=== PATIENT | male | born 1960 | race Caucasian/White ===

== ENCOUNTER 2020-12-01 14:54 | Inpatient (IN) ==
[2020-12-01] MEDS ORDERED: Acetaminophen/Butalbital/CaffeineTABLET PO PRN (16:51)
[2020-12-01] MEDS ORDERED: *HR* OxyCODONE Immed Rel 5 MG TABLET PO PRN (17:11)
[2020-12-01] MEDS ORDERED: Acetaminophen 325 MG TABLET PO PRN (17:11)
[2020-12-01] MEDS ORDERED: Naloxone 0.4 MG/ML INJ IVP PRN (17:11)
[2020-12-01] MEDS ORDERED: Ondansetron 4 MG/2 ML VIAL IVP PRN (17:11)
[2020-12-01] MEDS ORDERED: Chloraseptic Spray 177 ML BOTTLE MM PRN (17:21)
[2020-12-01] MEDS ORDERED: Dexamethasone Sodium Phos/PF 10 MG/ML VIAL IVP ONE (17:23)
[2020-12-01] MEDS: Furosemide 40 MG/4 ML VIAL IVP SCH (17:47)
[2020-12-01] MEDS: cefTRIAXone 1,000 MG in Water for inj. (sterile) 10 ML IVP SCH (17:47)
[2020-12-01 17:50] LABS: ABG Base Excess -2 mEq/L (-2 to 3); ABG HCO3 21 mEq/L (21-27); ABG Oxygen Saturation 97 % (95-98); ABG PCO2 32 mmHg (35-45); ABG PH 7.43 pH Units (7.32-7.45); ABG PO2 89 mmHg (85-104); ABG TCO2 22 mEq/L (20-26)
[2020-12-01] MEDS: Azithromycin 250 MG TABLET PO SCH (17:55)
[2020-12-01] MEDS: Ipratropium 1 PUFF INHALER IH SCH ×3 (17:57→23:27)
[2020-12-01] MEDS ORDERED: Remdesivir 200 MG in 0.9 % Sodium Chloride 100 ML IVPB ONE (18:00)
[2020-12-01] MEDS: Saline Nasal Spray 44 ML BOTTLE NS SCH ×2 (18:09→19:30)
[2020-12-01 18:49] LABS: C-Reactive Protein > 300 mg/L (Less than 10); Ferritin 1050 ng/mL (20-250); Lactate Dehydrogenase 520 Units/L (140-271)
[2020-12-01] MEDS: Lactobacillus 1 EACH CAP.SPRINK PO SCH (19:30)
[2020-12-01] MEDS: Chlorhexidine Rinse 15 ML MOUTHWASH MM SCH (19:30)
[2020-12-01] MEDS: Artificial Tears SOLN 15 ML BOTTLE BOTH EYES SCH (19:30)
[2020-12-01] MEDS: traZODone 50 MG TABLET PO PRN (23:00)
[2020-12-02 00:56] LABS: Basophils % 0.1 %; Hematocrit 41.2 % (37.5-50.1); Hemoglobin 14.7 g/dL (12.9-16.9); Immature Granulocytes % 0.6 % (0-4); Lymphocytes # 0.5 K/mcL (0.6-4.6); Lymphocytes % 3.8 %; Mean Corpuscular HGB Conc 35.7 g/dL (31.6-35.5); Mean Corpuscular Hemoglobin 28.5 pg (28.0-33.3); Mean Platelet Volume 9.2 fL (9.4-12.4); Monocytes # 0.1 K/mcL (0.0-1.3); Neutrophils # 13.2 K/mcL (1.6-8.9); Platelet Count 259 K/mcL (140-400); Red Blood Count 5.15 M/mcL (4.19-5.50); Red Cell Distribution Width 12.4 % (11.5-14.5); Segmented Neutrophils % 94.5 %; White Blood Count 13.9 K/mcL (4.3-11.1)
[2020-12-02 00:59] LABS: INR 1.4
[2020-12-02 01:10] LABS: Alanine Aminotransferase 129 Units/L (7-52); Albumin/Globulin Ratio 1.1 (1.1-2.2); Alkaline Phosphatase 97 Units/L (34-104); Aspartate Amino Transferase 113 Units/L (13-39); BUN/Creatinine Ratio 15 (6-26); Bilirubin,Total 0.7 mg/dL (0.3-1.0); Blood Urea Nitrogen 17 mg/dL (6-20); Carbon Dioxide 25 mEq/L (23-29); Chloride 91 mEq/L (98-107); Globulin 3.8 g/dL (2.4-3.5); Glucose 183 mg/dL (70-105); Magnesium 2.1 mg/dL (1.6-2.6); Osmolality,Calculated 272 (280-300); Phosphorous 3.3 mg/dL (2.7-4.5); Potassium 3.4 mEq/L (3.5-5.1); Sodium 128 mEq/L (136-145); Total Protein 7.8 g/dL (6.4-8.9); eGFR For African Americans > 60 (> 60); eGFR For Non-African Americans > 60 (> 60)
[2020-12-02 01:30] LABS: C-Reactive Protein > 300 mg/L (Less than 10); Ferritin 1361 ng/mL (20-250); Lactate Dehydrogenase 556 Units/L (140-271)
[2020-12-02] MEDS: Saline Nasal Spray 44 ML BOTTLE NS SCH ×8 (02:18→23:39)
[2020-12-02] MEDS: Ipratropium 1 PUFF INHALER IH SCH ×6 (03:46→23:32)
[2020-12-02] MEDS: *HR* Enoxaparin 40 MG/0.4 ML SYRINGE SQ SCH (05:11)
[2020-12-02] MEDS: Azithromycin 250 MG TABLET PO SCH (08:49)
[2020-12-02] MEDS: Lactobacillus 1 EACH CAP.SPRINK PO SCH ×2 (08:49→19:53)
[2020-12-02] MEDS: Multivit/Ca/Min/Fe/FA 1 TAB TABLET PO SCH (08:49)
[2020-12-02] MEDS: Chlorhexidine Rinse 15 ML MOUTHWASH MM SCH ×2 (08:50→19:53)
[2020-12-02] MEDS: Furosemide 40 MG/4 ML VIAL IVP SCH (08:50)
[2020-12-02] MEDS: Dexamethasone Sodium Phos/PF 10 MG/ML VIAL IVP SCH (08:50)
[2020-12-02] MEDS: Artificial Tears SOLN 15 ML BOTTLE BOTH EYES SCH ×2 (08:51→20:24)
[2020-12-02 09:03] LABS: ABG Base Excess 0 mEq/L (-2 to 3); ABG HCO3 23 mEq/L (21-27); ABG Oxygen Saturation 99 % (95-98); ABG PCO2 33 mmHg (35-45); ABG PH 7.46 pH Units (7.32-7.45); ABG PO2 115 mmHg (85-104); ABG TCO2 24 mEq/L (20-26)
[2020-12-02] MEDS ORDERED: Remdesivir 100 MG in 0.9 % Sodium Chloride 100 ML IVPB SCH (17:00)
[2020-12-02] MEDS: cefTRIAXone 1,000 MG in Water for inj. (sterile) 10 ML IVP SCH (18:35)
[2020-12-02] MEDS: traZODone 50 MG TABLET PO PRN (23:40)
[2020-12-03 00:20] LABS: Bilirubin,Urine Negative (Negative); Blood,Urine Trace (Negative); Clarity,Urine Clear (Clear); Color,Urine Colorless (Yellow); Glucose,Urine (UA) Normal (Normal); Ketones,Urine Negative (Negative); Leukocyte Esterase,Urine Negative (Negative); Nitrite,Urine Negative (Negative); Protein,Urine Negative (Neg-Trace); RBC,Urine 0-3 per hpf (0-3); Urobilinogen,Urine Normal (Normal); WBC,Urine 0-3 per hpf (0-3)
[2020-12-03] MEDS: Ipratropium 1 PUFF INHALER IH SCH ×6 (03:22→23:19)
[2020-12-03] MEDS: Saline Nasal Spray 44 ML BOTTLE NS SCH ×3 (05:09→16:35)
[2020-12-03] MEDS: *HR* Enoxaparin 40 MG/0.4 ML SYRINGE SQ SCH (05:11)
[2020-12-03 06:21] LABS: Basophils # 0.1 K/mcL (0.0-0.2); Basophils % 0.4 %; Hematocrit 41.8 % (37.5-50.1); Hemoglobin 14.2 g/dL (12.9-16.9); Immature Granulocytes % 1.9 % (0-4); Lymphocytes % 5.3 %; Mean Corpuscular Hemoglobin 28.3 pg (28.0-33.3); Mean Corpuscular Volume 83.3 fL (83.0-100.0); Mean Platelet Volume 9.5 fL (9.4-12.4); Monocytes # 0.8 K/mcL (0.0-1.3); Monocytes % 4.3 %; Neutrophils # 16.9 K/mcL (1.6-8.9); Platelet Count 352 K/mcL (140-400); Red Blood Count 5.02 M/mcL (4.19-5.50); Red Cell Distribution Width 13.1 % (11.5-14.5); Segmented Neutrophils % 88.1 %; White Blood Count 19.2 K/mcL (4.3-11.1)
[2020-12-03 06:46] LABS: Lactate Dehydrogenase 766 Units/L (140-271)
[2020-12-03 07:02] LABS: Alanine Aminotransferase 890 Units/L (7-52); Albumin 3.7 g/dL (3.5-5.7); Alkaline Phosphatase 112 Units/L (34-104); Aspartate Amino Transferase 586 Units/L (13-39); BUN/Creatinine Ratio 28 (6-26); Bilirubin,Total 0.6 mg/dL (0.3-1.0); Blood Urea Nitrogen 33 mg/dL (6-20); Calcium 8.9 mg/dL (8.6-10.3); Carbon Dioxide 24 mEq/L (23-29); Chloride 97 mEq/L (98-107); Globulin 3.6 g/dL (2.4-3.5); Glucose 175 mg/dL (70-105); Magnesium 2.6 mg/dL (1.6-2.6); Osmolality,Calculated 286 (280-300); Phosphorous 3.7 mg/dL (2.7-4.5); Potassium 4.1 mEq/L (3.5-5.1); Sodium 132 mEq/L (136-145); Total Protein 7.3 g/dL (6.4-8.9); eGFR For African Americans > 60 (> 60); eGFR For Non-African Americans > 60 (> 60)
[2020-12-03 07:25] LABS: INR 1.2; Prothrombin Time 14.2 Seconds (9.4-12.1)
[2020-12-03] MEDS: Chlorhexidine Rinse 15 ML MOUTHWASH MM SCH ×2 (07:57→19:50)
[2020-12-03] MEDS: Dexamethasone Sodium Phos/PF 10 MG/ML VIAL IVP SCH (07:57)
[2020-12-03] MEDS: Lactobacillus 1 EACH CAP.SPRINK PO SCH ×2 (07:57→19:51)
[2020-12-03] MEDS: Cholecalciferol (D-3) 1,000 UNIT (25MCG) TABLET PO SCH (07:58)
[2020-12-03] MEDS: Azithromycin 250 MG TABLET PO SCH (07:58)
[2020-12-03] MEDS: Furosemide 40 MG/4 ML VIAL IVP SCH (07:58)
[2020-12-03] MEDS: Multivit/Ca/Min/Fe/FA 1 TAB TABLET PO SCH (07:58)
[2020-12-03 07:59] LABS: C-Reactive Protein 162 mg/L (Less than 10); Ferritin > 1500 ng/mL (20-250)
[2020-12-03] MEDS: Artificial Tears SOLN 15 ML BOTTLE BOTH EYES SCH ×2 (08:29→23:50)
[2020-12-03] MEDS ORDERED: Saline Nasal Spray 44 ML BOTTLE NS PRN (17:11)
[2020-12-03] MEDS: cefTRIAXone 1,000 MG in Water for inj. (sterile) 10 ML IVP SCH (17:42)
[2020-12-03] MEDS: Doxycycline 100 MG CAPSULE PO SCH (19:51)
[2020-12-03] MEDS: traZODone 50 MG TABLET PO PRN (23:41)
[2020-12-03] MEDS: Benzonatate 100 MG CAPSULE PO PRN (23:41)
[2020-12-04] MEDS: Ipratropium 1 PUFF INHALER IH SCH ×6 (03:29→23:37)
[2020-12-04] MEDS: *HR* Enoxaparin 40 MG/0.4 ML SYRINGE SQ SCH (06:07)
[2020-12-04 06:37] LABS: Basophils # 0.1 K/mcL (0.0-0.2); Basophils % 0.7 %; Hematocrit 40.5 % (37.5-50.1); Hemoglobin 13.5 g/dL (12.9-16.9); Immature Granulocytes % 3.9 % (0-4); Lymphocytes # 1.5 K/mcL (0.6-4.6); Lymphocytes % 8.4 %; Mean Corpuscular HGB Conc 33.3 g/dL (31.6-35.5); Mean Corpuscular Hemoglobin 27.5 pg (28.0-33.3); Mean Corpuscular Volume 82.5 fL (83.0-100.0); Mean Platelet Volume 9.3 fL (9.4-12.4); Monocytes # 1.1 K/mcL (0.0-1.3); Monocytes % 6.4 %; Neutrophils # 14.2 K/mcL (1.6-8.9); Platelet Count 384 K/mcL (140-400); Red Blood Count 4.91 M/mcL (4.19-5.50); Red Cell Distribution Width 13.2 % (11.5-14.5); Segmented Neutrophils % 80.6 %; White Blood Count 17.6 K/mcL (4.3-11.1)
[2020-12-04 06:43] LABS: INR 1.2; Prothrombin Time 13.5 Seconds (9.4-12.1)
[2020-12-04 07:00] LABS: Lactate Dehydrogenase 508 Units/L (140-271)
[2020-12-04 07:12] LABS: Alanine Aminotransferase 788 Units/L (7-52); Albumin 3.5 g/dL (3.5-5.7); Albumin/Globulin Ratio 1.1 (1.1-2.2); Alkaline Phosphatase 101 Units/L (34-104); Aspartate Amino Transferase 268 Units/L (13-39); BUN/Creatinine Ratio 32 (6-26); Bilirubin,Total 0.5 mg/dL (0.3-1.0); Blood Urea Nitrogen 36 mg/dL (6-20); Calcium 8.6 mg/dL (8.6-10.3); Carbon Dioxide 26 mEq/L (23-29); Chloride 99 mEq/L (98-107); Globulin 3.2 g/dL (2.4-3.5); Glucose 120 mg/dL (70-105); Magnesium 2.8 mg/dL (1.6-2.6); Osmolality,Calculated 290 (280-300); Potassium 4.2 mEq/L (3.5-5.1); Sodium 135 mEq/L (136-145); Total Protein 6.7 g/dL (6.4-8.9); eGFR For African Americans > 60 (> 60); eGFR For Non-African Americans > 60 (> 60)
[2020-12-04 09:07] LABS: Ferritin > 1500 ng/mL (20-250)
[2020-12-04] MEDS: Cholecalciferol (D-3) 1,000 UNIT (25MCG) TABLET PO SCH (09:11)
[2020-12-04] MEDS: Multivit/Ca/Min/Fe/FA 1 TAB TABLET PO SCH (09:11)
[2020-12-04] MEDS: Doxycycline 100 MG CAPSULE PO SCH ×2 (09:11→21:10)
[2020-12-04] MEDS: Dexamethasone Sodium Phos/PF 10 MG/ML VIAL IVP SCH (09:12)
[2020-12-04] MEDS: Lactobacillus 1 EACH CAP.SPRINK PO SCH ×2 (09:12→21:10)
[2020-12-04] MEDS: Chlorhexidine Rinse 15 ML MOUTHWASH MM SCH ×2 (09:12→21:10)
[2020-12-04] MEDS: Artificial Tears SOLN 15 ML BOTTLE BOTH EYES SCH ×2 (09:13→21:25)
[2020-12-04] MEDS: Furosemide 40 MG/4 ML VIAL IVP SCH (09:13)
[2020-12-04 13:55] LABS: C-Reactive Protein 73 mg/L (Less than 10)
[2020-12-04] MEDS: cefTRIAXone 1,000 MG in Water for inj. (sterile) 10 ML IVP SCH (18:12)
[2020-12-05] MEDS: Ipratropium 1 PUFF INHALER IH SCH ×6 (03:50→23:44)
[2020-12-05] MEDS: *HR* Enoxaparin 40 MG/0.4 ML SYRINGE SQ SCH (05:32)
[2020-12-05 08:04] LABS: Hematocrit 42.7 % (37.5-50.1); Hemoglobin 14.4 g/dL (12.9-16.9); Mean Corpuscular HGB Conc 33.7 g/dL (31.6-35.5); Mean Corpuscular Hemoglobin 27.6 pg (28.0-33.3); Mean Platelet Volume 9.1 fL (9.4-12.4); Platelet Count 427 K/mcL (140-400); Red Blood Count 5.21 M/mcL (4.19-5.50); Red Cell Distribution Width 13.1 % (11.5-14.5); White Blood Count 15.3 K/mcL (4.3-11.1)
[2020-12-05] MEDS: Dexamethasone Sodium Phos/PF 10 MG/ML VIAL IVP SCH (08:04)
[2020-12-05] MEDS: Multivit/Ca/Min/Fe/FA 1 TAB TABLET PO SCH (08:04)
[2020-12-05] MEDS: Chlorhexidine Rinse 15 ML MOUTHWASH MM SCH ×2 (08:04→21:12)
[2020-12-05 08:05] LABS: INR 1.1
[2020-12-05] MEDS: Cholecalciferol (D-3) 1,000 UNIT (25MCG) TABLET PO SCH (08:05)
[2020-12-05] MEDS: Benzonatate 100 MG CAPSULE PO PRN (08:05)
[2020-12-05] MEDS: Lactobacillus 1 EACH CAP.SPRINK PO SCH ×2 (08:05→21:13)
[2020-12-05] MEDS: Doxycycline 100 MG CAPSULE PO SCH ×2 (08:05→21:12)
[2020-12-05 08:20] LABS: BUN/Creatinine Ratio 31 (6-26); Blood Urea Nitrogen 33 mg/dL (6-20); Calcium 8.6 mg/dL (8.6-10.3); Carbon Dioxide 26 mEq/L (23-29); Chloride 100 mEq/L (98-107); Glucose 100 mg/dL (70-105); Osmolality,Calculated 289 (280-300); Potassium 3.9 mEq/L (3.5-5.1); Sodium 136 mEq/L (136-145); eGFR For African Americans > 60 (> 60); eGFR For Non-African Americans > 60 (> 60)
[2020-12-05] MEDS: Artificial Tears SOLN 15 ML BOTTLE BOTH EYES SCH ×2 (09:00→21:12)
[2020-12-05] MEDS: traZODone 50 MG TABLET PO PRN (21:15)
[2020-12-05 23:02] LABS: Hemoglobin 14.1 g/dL (12.9-16.9); Mean Corpuscular HGB Conc 33.6 g/dL (31.6-35.5); Mean Corpuscular Volume 83.3 fL (83.0-100.0); Mean Platelet Volume 8.9 fL (9.4-12.4); Platelet Count 459 K/mcL (140-400); Red Blood Count 5.04 M/mcL (4.19-5.50); White Blood Count 14.6 K/mcL (4.3-11.1)
[2020-12-05 23:36] LABS: Lymphocytes # 0.6 K/mcL (0.6-4.6); Monocytes # 0.3 K/mcL (0.0-1.3); Neutrophils # 13.7 K/mcL (1.6-8.9)
[2020-12-05 23:37] LABS: Platelet Estimate Normal (Normal)
[2020-12-06] MEDS: Ipratropium 1 PUFF INHALER IH SCH ×5 (03:34→20:16)
[2020-12-06] MEDS: *HR* Enoxaparin 40 MG/0.4 ML SYRINGE SQ SCH (06:00)
[2020-12-06 06:25] LABS: BUN/Creatinine Ratio 28 (6-26); Blood Urea Nitrogen 31 mg/dL (6-20); Calcium 8.8 mg/dL (8.6-10.3); Carbon Dioxide 27 mEq/L (23-29); Chloride 104 mEq/L (98-107); Glucose 95 mg/dL (70-105); Osmolality,Calculated 290 (280-300); Potassium 4.2 mEq/L (3.5-5.1); Sodium 137 mEq/L (136-145); eGFR For African Americans > 60 (> 60); eGFR For Non-African Americans > 60 (> 60)
[2020-12-06] MEDS: Lactobacillus 1 EACH CAP.SPRINK PO SCH ×2 (08:52→19:25)
[2020-12-06] MEDS: Chlorhexidine Rinse 15 ML MOUTHWASH MM SCH ×2 (08:52→19:25)
[2020-12-06] MEDS: Dexamethasone Sodium Phos/PF 10 MG/ML VIAL IVP SCH (08:52)
[2020-12-06] MEDS: Cholecalciferol (D-3) 1,000 UNIT (25MCG) TABLET PO SCH (08:53)
[2020-12-06] MEDS: Multivit/Ca/Min/Fe/FA 1 TAB TABLET PO SCH (08:53)
[2020-12-06] MEDS: Doxycycline 100 MG CAPSULE PO SCH ×2 (08:53→19:25)
[2020-12-06] MEDS: Furosemide 40 MG TABLET PO SCH (08:53)
[2020-12-06] MEDS: Artificial Tears SOLN 15 ML BOTTLE BOTH EYES SCH ×2 (09:14→19:25)
[2020-12-06 20:50] LABS: Hematocrit 44.9 % (37.5-50.1); Mean Corpuscular HGB Conc 33.4 g/dL (31.6-35.5); Mean Corpuscular Hemoglobin 27.8 pg (28.0-33.3); Mean Corpuscular Volume 83.3 fL (83.0-100.0); Mean Platelet Volume 8.7 fL (9.4-12.4); Platelet Count 493 K/mcL (140-400); Red Blood Count 5.39 M/mcL (4.19-5.50); Red Cell Distribution Width 13.1 % (11.5-14.5); White Blood Count 13.8 K/mcL (4.3-11.1)
[2020-12-06 21:06] LABS: Lymphocytes # 0.8 K/mcL (0.6-4.6); Monocytes # 0.3 K/mcL (0.0-1.3); Neutrophils # 12.4 K/mcL (1.6-8.9); Platelet Estimate Normal (Normal)
[2020-12-07] MEDS: Ipratropium 1 PUFF INHALER IH SCH ×6 (00:23→20:23)
[2020-12-07] MEDS: *HR* Enoxaparin 40 MG/0.4 ML SYRINGE SQ SCH (05:28)
[2020-12-07 08:13] LABS: BUN/Creatinine Ratio 28 (6-26); Blood Urea Nitrogen 31 mg/dL (6-20); Carbon Dioxide 24 mEq/L (23-29); Chloride 103 mEq/L (98-107); Glucose 116 mg/dL (70-105); Osmolality,Calculated 292 (280-300); Potassium 4.1 mEq/L (3.5-5.1); Sodium 137 mEq/L (136-145); eGFR For African Americans > 60 (> 60); eGFR For Non-African Americans > 60 (> 60)
[2020-12-07] MEDS: Cholecalciferol (D-3) 1,000 UNIT (25MCG) TABLET PO SCH (09:01)
[2020-12-07] MEDS: Doxycycline 100 MG CAPSULE PO SCH ×2 (09:01→20:11)
[2020-12-07] MEDS: Chlorhexidine Rinse 15 ML MOUTHWASH MM SCH ×2 (09:01→20:11)
[2020-12-07] MEDS: Furosemide 40 MG TABLET PO SCH (09:01)
[2020-12-07] MEDS: Lactobacillus 1 EACH CAP.SPRINK PO SCH ×2 (09:01→20:11)
[2020-12-07] MEDS: Multivit/Ca/Min/Fe/FA 1 TAB TABLET PO SCH (09:01)
[2020-12-07] MEDS: Dexamethasone Sodium Phos/PF 10 MG/ML VIAL IVP SCH (09:03)
[2020-12-07] MEDS: Artificial Tears SOLN 15 ML BOTTLE BOTH EYES SCH (09:05)
[2020-12-07 22:33] LABS: Basophils # 0.1 K/mcL (0.0-0.2); Basophils % 0.7 %; Eosinophils # 0.1 K/mcL (0.0-0.6); Eosinophils % 0.6 %; Hematocrit 46.9 % (37.5-50.1); Hemoglobin 15.3 g/dL (12.9-16.9); Immature Granulocytes % 5.2 % (0-4); Lymphocytes # 1.4 K/mcL (0.6-4.6); Lymphocytes % 9.4 %; Mean Corpuscular HGB Conc 32.6 g/dL (31.6-35.5); Mean Corpuscular Hemoglobin 27.7 pg (28.0-33.3); Mean Platelet Volume 8.7 fL (9.4-12.4); Platelet Count 484 K/mcL (140-400); Red Blood Count 5.52 M/mcL (4.19-5.50); Red Cell Distribution Width 12.9 % (11.5-14.5); Segmented Neutrophils % 81.1 %; White Blood Count 14.8 K/mcL (4.3-11.1)
[2020-12-07 22:40] LABS: Monocytes # 0.4 K/mcL (0.0-1.3)
[2020-12-07 22:59] LABS: Platelet Estimate Normal (Normal)
[2020-12-08] MEDS: traZODone 50 MG TABLET PO PRN (00:12)
[2020-12-08] MEDS: Ipratropium 1 PUFF INHALER IH SCH ×5 (00:13→16:09)
[2020-12-08] MEDS: Artificial Tears SOLN 15 ML BOTTLE BOTH EYES SCH ×2 (05:02→07:57)
[2020-12-08] MEDS: *HR* Enoxaparin 40 MG/0.4 ML SYRINGE SQ SCH (05:02)
[2020-12-08 05:27] LABS: BUN/Creatinine Ratio 27 (6-26); Blood Urea Nitrogen 32 mg/dL (6-20); Calcium 9.1 mg/dL (8.6-10.3); Carbon Dioxide 25 mEq/L (23-29); Chloride 101 mEq/L (98-107); Glucose 113 mg/dL (70-105); Osmolality,Calculated 290 (280-300); Potassium 4.1 mEq/L (3.5-5.1); Sodium 136 mEq/L (136-145); eGFR For African Americans > 60 (> 60); eGFR For Non-African Americans > 60 (> 60)
[2020-12-08] MEDS: Multivit/Ca/Min/Fe/FA 1 TAB TABLET PO SCH (07:57)
[2020-12-08] MEDS: Lactobacillus 1 EACH CAP.SPRINK PO SCH (07:57)
[2020-12-08] MEDS: Doxycycline 100 MG CAPSULE PO SCH (07:57)
[2020-12-08] MEDS: Chlorhexidine Rinse 15 ML MOUTHWASH MM SCH (07:57)
[2020-12-08] MEDS: Furosemide 40 MG TABLET PO SCH (07:57)
[2020-12-08] MEDS: Dexamethasone Sodium Phos/PF 10 MG/ML VIAL IVP SCH (07:57)
[2020-12-08] MEDS: Cholecalciferol (D-3) 1,000 UNIT (25MCG) TABLET PO SCH (07:57)
[2020-12-08 15:48] VITALS: BP 139/93
== END 2020-12-08 18:31 | disposition home or self-care (01) | DRG 871 ==
LOC: 2NENU → SUATTDRO 16:05 → 2NENU 16:35 → SUATTDRO 20:42
PROVIDERS: ADMIT Internal Medicine; ATTEND Student in an Organized Health Care Education/Training Program